=== PATIENT | female | born 1990 | race Caucasian/White ===

== ENCOUNTER → 2021-04-01 | Outpatient (CLI) | payer OTHER ==
[2021-04-02 07:11] LABS: RHEUMATOID ARTHRITIS FACTOR <10.0 IU/mL (0.0-13.9); VITAMIN D, 25-HYDROXY 20.9 ng/mL (30.0-100.0)
[2021-04-03 00:09] LABS: CCP ANTIBODIES IGG/IGA 3 units (0-19)
== END ==
LOC: LAB 11:45
PROVIDERS: Nurse Practitioner Family
DX: M25.50 Pain in unspecified joint (principal); M79.10 Myalgia, unspecified site; R76.8 Other specified abnormal immunological findings in serum; D89.9 Disorder involving the immune mechanism, unspecified; R53.83 Other fatigue
CPT/HCPCS: 36415; 82550; 82728; 83520; 85652; 86140; 86200; 86431

== ENCOUNTER → 2021-06-17 | Outpatient (CLI) | payer OTHER | LOC: EMI 13:33 | DX: M60.9 Myositis, unspecified (principal); R74.8 Abnormal levels of other serum enzymes; M79.651 Pain in right thigh | CPT/HCPCS: 73718 ==

== ENCOUNTER → 2021-07-22 | Day surgery (SDC) | payer OTHER ==
[~2021-07-22] MED LIST: ALLEGRA-D 24 H1 EACH PO; FLINTSTONES1 EACH PO; HYDROCODON-ACE1 EAC2 PO; KRILL OIL500 MG PO; NEURONTIN300 MG PO; ROBAXIN 750 MG750 MG PO; SINGULAIR10 MG PO; TOPAMAX50 MG PO; VENTOLIN INHALER INH; VITAMIN D2 PO; WELLBUTRIN XL300 MG PO
== END | disposition home or self-care (01) ==
LOC: OR 05:13
DX: M62.551 Muscle wasting and atrophy, not elsewhere classified, right thigh (principal); M60.9 Myositis, unspecified; J45.909 Unspecified asthma, uncomplicated; E55.9 Vitamin D deficiency, unspecified; G43.909 Migraine, unspecified, not intractable, without status migrainosus; R76.8 Other specified abnormal immunological findings in serum; Z20.822 Contact with and (suspected) exposure to COVID-19; Z87.891 Personal history of nicotine dependence; Z86.16 Personal history of COVID-19
CPT/HCPCS: 84703; J0690; J1100; J2001; J2250; J2405; J2704; J3010; J7030; J7120

== ENCOUNTER → 2021-10-20 | Outpatient (CLI) | payer OTHER | LOC: MAMO 13:48 | DX: Z12.31 Encounter for screening mammogram for malignant neoplasm of breast (principal) | CPT/HCPCS: 77063; 77067 ==